=== PATIENT | female | born 1955 ===

== ENCOUNTER → 2019-05-29 | Outpatient (CLI) | payer MEDICARE, MEDICAID ==
--- NOTE | 2019-05-29 17:03 | KCIC ---
EXAM: CT Lung Cancer Screening Chest without IV contrast INDICATION: Lung cancer screening. Current smoker greater than 30 year pack history. TECHNIQUE: Multi-detector row low dose CT images were acquired from the thoracic inlet through the upper abdomen without the use of IV contrast. Scanning parameters were adjusted for evaluation of lung parenchyma for developing lung carcinoma with limited patient exposure. Sagittal and coronal images were acquired from the transaxial data. All CT scans performed at this facility utilize dose optimization techniques as appropriate to the exam, including the following: Automated exposure control and adjustment of the mA and/or KV according to patient size (this includes techniques or standardized protocols for targeted exams where dose is indication/reason for exam). COMPARISON: None available. FINDINGS: The absence of IV contrast limits evaluation of soft tissue pathology. CARDIOVASCULAR: Minimal calcified plaque in the coronary arteries. Normal caliber thoracic aorta with no significant calcified plaque burden. MEDIASTINUM & LILLI: No adenopathy or masses. Partly calcified right lower paratracheal lymph nodes are noted.. LUNGS: 7 mm posterior right upper lobe nodular pleural parenchymal thickening, best illustrated on axial image 11 of 61 on series 2 is present. Otherwise no pulmonary infiltrate, nodule, or other focal abnormality. PLEURAL SPACE: No pleural effusions. No pneumothorax. OSSEOUS & SOFT TISSUES: Unremarkable. ABDOMEN: The visualized portions of the upper abdomen are normal. Lung-RADS ASSESSMENT: LUNG-RADS CATEGORY 3: PROBABLY BENIGN - Probably benign finding(s), short term follow up suggested; includes nodules with a low likelihood of becoming a clinically active cancer. -- 6 month LDCT. E2: Soft tissue structures and skeletal structures other than the lungs contain benign findings that do not require additional follow up IMPRESSION: Probably benign 7 mm posterior right upper lobe lung nodule. Six-month follow-up noncontrast chest CT recommended. Electronically signed by: Mynor Reddy MD (05/29/2019 5:00 PM) [facility]
== END | disposition home or self-care (01) ==
LOC: KCIC CT 12:38
PROVIDERS: ATTEND Family Medicine
DX: Z12.2 Encounter for screening for malignant neoplasm of respiratory organs (principal); F17.210 Nicotine dependence, cigarettes, uncomplicated; I25.10 Atherosclerotic heart disease of native coronary artery without angina pectoris; J98.4 Other disorders of lung
CPT/HCPCS: G0297